=== PATIENT | female | born 1965 | race Caucasian/White ===

== ENCOUNTER 2021-09-21 19:50 | Emergency (ER) | payer MEDICAID ==
[~2021-09-21] VITALS: Ht 152.4 cm; Wt 74.3 kg
[2021-09-21] MEDS ORDERED: KETOROLAC 30MG/ML VIAL IV ONE (21:45)
[2021-09-21] MEDS ORDERED: MORPHINE SULFATE 4 MG/ML CPJ (NOT FOR IM USE) IV ONE (21:45)
[2021-09-22] MEDS ORDERED: MORPHINE SULFATE 4 MG/ML CPJ (NOT FOR IM USE) IV ONE
[2021-09-22] MEDS ORDERED: IBUP-2029 MT (00:09)
[2021-09-22 00:30] VITALS: BP 136/79
== END 2021-09-22 00:30 | disposition home or self-care (01) ==
LOC: ER 19:50
DX: S52.592A Other fractures of lower end of left radius, initial encounter for closed fracture (principal); S32.2XXA Fracture of coccyx, initial encounter for closed fracture; Y00.XXXA Assault by blunt object, initial encounter; S50.311A Abrasion of right elbow, initial encounter; Y93.89 Activity, other specified; Y92.89 Other specified places as the place of occurrence of the external cause
CPT/HCPCS: 72220; 73110; 96374; 96375; 96376; 99284; J1885; J2270; Z7610; A4565